=== PATIENT | female | born 1970 | race Caucasian/White ===

== ENCOUNTER 2022-08-10 06:12 | Day surgery (SDC) | payer OTHER ==
[~2022-08-10] VITALS: Ht 152.4 cm; Wt 62.6 kg
[2022-08-10] MEDS ORDERED: fentaNYL citrate 0.05 MG/ML VIAL ONE (07:38)
[2022-08-10] MEDS ORDERED: diphenhydrAMINE 50 MG/ML VIAL ONE (07:38)
[2022-08-10] MEDS ORDERED: MIDAZOLAM 5 MG/5 ML VIAL ONE (07:39)
[2022-08-10] MEDS ORDERED: MIDAZOLAM 5 MG/5 ML VIAL IV ONE (08:25)
[2022-08-10] MEDS ORDERED: fentaNYL citrate 0.05 MG/ML VIAL IVP ONE (08:25)
== END 2022-08-10 09:05 | disposition home or self-care (01) ==
LOC: MMU 06:12 → MDS 06:12
PROVIDERS: ATTEND Internal Medicine Gastroenterology
DX: K21.9 Gastro-esophageal reflux disease without esophagitis (principal); K44.9 Diaphragmatic hernia without obstruction or gangrene; K31.7 Polyp of stomach and duodenum; K29.70 Gastritis, unspecified, without bleeding; E78.00 Pure hypercholesterolemia, unspecified; Z90.49 Acquired absence of other specified parts of digestive tract; Z90.721 Acquired absence of ovaries, unilateral; Z79.899 Other long term (current) drug therapy; Z20.822 Contact with and (suspected) exposure to COVID-19
CPT/HCPCS: 43239; 43251; 81025; 87426; J2250; J3010; 88305; 88312; 88313; 88342; J1200